=== PATIENT | female | born 1965 | race Caucasian/White ===

== ENCOUNTER 2019-10-22 14:45 | Inpatient (IN) | payer OTHER, MEDICAID ==
[~2019-10-22] VITALS: Ht 157.5 cm; Wt 51.7 kg
[2019-10-22 15:26] VITALS: BP_SYST 98
--- NOTE | 2019-10-22 15:36 | NUR ---
Patient to ER bed 04 to gown for evaluation. Side rails up.
[2019-10-22] MEDS ORDERED: NACL 0.9% 1,000 ML IV ONE (15:44)
[2019-10-22] MEDS ORDERED: NS 1000 ML IV.SOLN IV ONE (15:45)
--- NOTE | 2019-10-22 15:46 | NUR ---
ER at bedside examining patient.
[2019-10-22] MEDS ORDERED: cefTRIAXone 1 GM IVPB PREMIX 50 ML IV ONE (16:00)
[2019-10-22] MEDS ORDERED: ACETAMINOPHEN 500 MG TABLET PO ONE (16:00)
--- NOTE | 2019-10-22 16:00 | NUR ---
Report received from BRANDEN Bird, BIB ambulance from [facility]. Patient had fever of 101.6 at 1130 today. patient given tyelnol at [facility]. pt history of pneumonia, bronchitis and UTI. Patient afebrile on arrival. No s/s of acute distress noted. Will continue to monitor.
--- NOTE | 2019-10-22 16:30 | NUR ---
Patient transported to radiology via gurny, accompanied by rv technician.
[2019-10-22 16:34] LABS: HEMATOCRIT 35.5 % (36-48); HEMOGLOBIN 11.7 g/dL (12.0-16.0); MEAN CORPUSCULAR HEMOGLOBIN 29 pg (27-31); MEAN CORPUSCULAR HGB CONC 33 % (32-36); MEAN CORPUSCULAR VOLUME 87 fL (79.0-98.0); PLATELET COUNT (AUTO) 306 K/uL (130-430); RED BLOOD CELL COUNT(AUTO) 4.07 MIL/uL (4.2-6.2); RED CELL DISTRIBUTION WIDTH 15.5 % (9.0-15.0); WHITE BLOOD COUNT (AUTO) 10.4 K/uL (4.8-10.8)
[2019-10-22] MEDS ORDERED: AZITHROMYCIN 500 MG in NS 250 ML IV ONE (16:45)
--- NOTE | 2019-10-22 16:45 | NUR ---
patient back from radiology. no s/s of acute distress noted.
[2019-10-22 17:00] LABS: INR 1.1 (0.8-1.2); PROTHROMBIN TIME 10.7 SECS (9.5-12.5)
--- NOTE | 2019-10-22 17:00 | NUR ---
attempted to straight cath for urine sample x2 by two different RN's including smelter charger. attempts unsuccessful. per md, let patient rest and attempt later.
[2019-10-22 17:14] LABS: CALCIUM 9.2 mg/dL (8.4-11.0); CREATININE 0.8 mg/dL (0.55-1.30); POTASSIUM 3.8 mmol/L (3.5-5.1)
[2019-10-22] MEDS ORDERED: LORazepam 2 MG/ML VIAL IVP ONE (17:15)
[2019-10-22 17:19] LABS: ALBUMIN 2.5 g/dL (3.4-4.8); TOTAL BILIRUBIN 0.3 mg/dL (0.0-1.0)
[2019-10-22] MEDS ORDERED: LORazepam 2 MG/ML VIAL ONE (17:22)
[2019-10-22 17:32] LABS: ATYPICAL LYMPHOCYTES % 1 % (0-0); BAND % (MANUAL) 4 % (0-6); LYMPHOCYTES % (MANUAL) 22 % (20-46)
[2019-10-22 17:33] LABS: BASOPHILS % (MANUAL) 0 % (0-2); EOSINOPHILS % (MANUAL) 0 % (0-7); MONOCYTES % (MANUAL) 21 % (0-11)
--- NOTE | 2019-10-22 17:58 | NUR ---
Dr. Arnoldium paged regarding admission.
[2019-10-22] MEDS ORDERED: AZITHROMYCIN 500 MG/VIAL (ZITHROMAX) IV ONE ×2 (18:04→19:27)
--- NOTE | 2019-10-22 18:25 | NUR ---
Attempted to straight cath patient and unsuccessful. Will endorse to tele unit
[2019-10-22] MEDS: NACL 0.9% 1,000 ML IV SCH (18:34)
--- NOTE | 2019-10-22 19:30 | NUR ---
CORNELIA Ulrich started by RN @ 1851, completed @ 1929
--- NOTE | 2019-10-22 19:55 | NUR ---
Gave report to BRANDEN Gonzalez. Patient's summary report, code status form and belongins all completed and printed. Unable to straight cath pt to obtain urine specimen. Patient in bed, awake and resting. No s/s of acute distress noted. Patient unable to be transferred at this time, waiting for unit to accept patient. endorsed care to BRANDEN Gonzalez.
--- NOTE | 2019-10-22 20:00 | NUR ---
Received sbar report from BRANDEN Burnett. Pt in no signs of acute distress or discomfort noted. Will cont to monitor pt.
--- NOTE | 2019-10-22 21:00 | NUR ---
Attempted in and out cath at bedside. Attempt unseuccessful. Will make MD aware.
[2019-10-22] MEDS ORDERED: ACET-2165 PO ×2 (21:52→21:53)
[2019-10-22] MEDS ORDERED: ALBU2.5V7 INH (21:53)
[2019-10-22] MEDS ORDERED: ASCO500T20 PO (21:54)
[2019-10-22] MEDS ORDERED: BISA10SU61 RC (21:55)
[2019-10-22] MEDS ORDERED: VITD2000 PO (21:56)
[2019-10-22] MEDS ORDERED: DOCU-144 PO (21:57)
[2019-10-22] MEDS ORDERED: SACC250C3 PO (21:57)
[2019-10-22] MEDS ORDERED: HYDR200T80 PO (21:58)
[2019-10-22] MEDS ORDERED: MOM PO (21:59)
[2019-10-22] MEDS ORDERED: MULT1CAP34 PO (22:00)
[2019-10-22] MEDS ORDERED: OMEP20CA11 PO (22:00)
--- NOTE | 2019-10-22 22:00 | NUR ---
Pt in bed with eyes open resting comfortably. No signs of acute distress or discomfort noted. Will cont to monitor pt.
[2019-10-22] MEDS ORDERED: CALC-827 PO (22:01)
[2019-10-22] MEDS ORDERED: OXYB10TA2 PO (22:02)
[2019-10-22] MEDS ORDERED: PRED5TAB PO (22:03)
[2019-10-22] MEDS ORDERED: AMIN30LI2 PO (22:04)
[2019-10-22] MEDS ORDERED: METO-290 PO (22:04)
[2019-10-22] MEDS ORDERED: ZINC56.7 TP (22:14)
[2019-10-22 23:10] VITALS: BP_SYST 135
--- NOTE | 2019-10-22 23:10 | NUR ---
ADMISSION NOTE Received patient from ER via gurney. Patient admitted with diagnosis of PNA. Patient is awake, alert, oriented X 0. Patient oriented to hospital room, call light, toileting, pain management and safety-teach back done. Patient informed that PASTORA will be HER nurse and that their room number is 122B. Personal belongings checked and Belongings List documented. Call light within reach.
--- NOTE | 2019-10-22 23:10 | NUR ---
Transfer to telemtry unit via ACLS protocol. Licensed nurse present. IV present no signs or symptoms of infiltration.
[2019-10-22] MEDS ORDERED: BISACODYL 10 MG/SUPPOSITORY RC PRN (23:30)
[2019-10-22] MEDS ORDERED: MILK OF MAGNESIA 30 ML UDC PO PRN (23:30)
[2019-10-22] MEDS: IPRATROPIUM/ALBUTEROL SULFATE 3 ML AMPUL.NEB (DUONEB) INH SCH (23:31)
[2019-10-22 23:49] VITALS: BP_SYST 135
[2019-10-22 23:54] VITALS: BP_SYST 135
[2019-10-23] VITALS (7 sets, daily range): BP systolic 91–116
--- NOTE | 2019-10-23 00:23 | NUR ---
Uro Consultation Paged Reason for consultation: UTI Was consult called: Yes Person who was notified: Parul Consulting Physician: Dr Moon Pneumatic Riveter Pneumatic Riveter Specialty: Urology Ordered By: Dr Ken
--- NOTE | 2019-10-23 00:23 | NUR ---
Pulmo Consultation Paged Reason for consultation: Bilateral PNA Was consult called: Yes Person who was notified: Parul Consulting Physician: Dr Lorenzo Live Source Operator Live Source Operator Specialty: Pulmo Ordered By: Dr Ken
--- NOTE | 2019-10-23 00:28 | NUR ---
ID Consultation Paged Reason for consultation: PNA Was consult called: Yes Person who was notified: Parul Consulting Physician: Dr Gallegos Office Communication Professor Office Communication Professor Specialty: Infectious Disease Ordered By: Dr Ken
--- NOTE | 2019-10-23 01:00 | NUR ---
UNABLE TO INSERT DE LA CRUZ, DR. MOON UNABLE TO ACCEPT PATIENT Patient is resting in bed, awake, breathing evenly and nonlabored on 2L of oxygen via NC. Educated patient on need for de la cruz catheter, patient unable to state understanding due to cognitive limitations. Attempt to insert de la cruz catheter to patient unsuccessful. Spoke with Dr. Moon, he is unable to accept patient for urology consult, he referred Dr. Jonathan Tran instead. No s/s of distress at this time, fall/safety/aspiration precautions, will continue to monitor.
--- NOTE | 2019-10-23 03:00 | NUR ---
ROUNDS Patient is resting in bed, eyes closed, breathing evenly and nonlabored on 2L of oxygen via NC. No s/s of distress at this time, fall/safety/aspiration precautions, will continue to monitor.
[2019-10-23] MEDS: IPRATROPIUM/ALBUTEROL SULFATE 3 ML AMPUL.NEB (DUONEB) INH SCH ×6 (04:09→22:40)
--- NOTE | 2019-10-23 04:30 | NUR ---
IVF STARTED, NEW IV STARTED Patient is resting in bed, eyes closed, breathing evenly and nonlabored on 2L of oxygen via NC. New IV started on the right hand 22g, IVF started and running, patient is tolerating it well. Patient has and IV on the left wrist 22g SL. No s/s of distress at this time, fall/safety/aspiration precautions, will continue to monitor.
[2019-10-23] MEDS: NACL 0.9% 1,000 ML IV SCH ×2 (04:31→15:41)
[2019-10-23 06:40] LABS: BASOPHILS # (AUTO) 0.2 K/uL (0.0-0.2); BASOPHILS % (AUTO) 1.6 % (0.0-2.0); EOSINOPHILS # (AUTO) 0.1 K/uL (0.0-0.4); EOSINOPHILS % (AUTO) 0.6 % (0.0-4.0); HEMATOCRIT 34.2 % (36-48); HEMOGLOBIN 11.1 g/dL (12.0-16.0); LYMPHOCYTES # (AUTO) 1.8 K/uL (1.0-5.5); LYMPHOCYTES % (AUTO) 16.9 % (20.5-51.5); MEAN CORPUSCULAR HEMOGLOBIN 29 pg (27-31); MEAN CORPUSCULAR HGB CONC 32 % (32-36); MEAN CORPUSCULAR VOLUME 89 fL (79.0-98.0); MONOCYTES # (AUTO) 2.1 K/uL (0.0-1.0); MONOCYTES % (AUTO) 19.4 % (1.7-9.3); NEUTROPHILS # (AUTO) 6.6 K/uL (1.8-7.7); NEUTROPHILS % (AUTO) 61.5 % (40.0-70.0); PLATELET COUNT (AUTO) 274 K/uL (130-430); RED BLOOD CELL COUNT(AUTO) 3.84 MIL/uL (4.2-6.2); RED CELL DISTRIBUTION WIDTH 15.4 % (9.0-15.0); WHITE BLOOD COUNT (AUTO) 10.8 K/uL (4.8-10.8)
--- NOTE | 2019-10-23 06:55 | NUR ---
CLOSING NOTES Patient is resting in bed, eyes closed, breathing evenly and nonlabored on 2L of oxygen via NC. Needs met throughout the shift. No s/s of distress at this time, fall/safety/aspiration precautions, will endorse care to morning shift RN.
[2019-10-23 07:10] LABS: ALBUMIN 2.1 g/dL (3.4-4.8); CALCIUM 8.3 mg/dL (8.4-11.0); CREATININE 0.53 mg/dL (0.55-1.30); POTASSIUM 3.8 mmol/L (3.5-5.1); TOTAL BILIRUBIN 0.2 mg/dL (0.0-1.0)
[2019-10-23] MEDS ORDERED: NON-FORMULARY MEDICATION (Amino Acids/Protein Hydrolys (Pro-Stat Liquid) 30 ML) PO SCH (09:00)
[2019-10-23] MEDS: HYDROXYCHLOROQUINE SULFATE 200 MG TABLET PO SCH (09:00)
--- NOTE | 2019-10-23 09:47 | NUR ---
Nutrition Update Betito Scale 13 noted. Pt admitted for PNA Diet: Regular BMI: 20.9 kg/m2 RD to follow per nutrition care standards.
--- NOTE | 2019-10-23 10:04 | NUR ---
CONSULTATION PAGED/CALLED Reason for Consultation: [] HYDRONEPHROSIS Person Who was Notified: [] MALOU Consulting Physician: [] CORINNA ALVAREZ Logging Crew Foreman Specialty: [] UROLOGY Ordering Physician: [] DR NAVARRETE
[2019-10-23] MEDS: OXYBUTYNIN CHLORIDE 5 MG TABLET PO SCH (11:10)
[2019-10-23] MEDS: PREDNISONE 5 MG TABLET PO SCH (11:11)
[2019-10-23] MEDS: AZITHROMYCIN 250 MG TABLET PO SCH (11:11)
[2019-10-23] MEDS: ASCORBIC ACID 500 MG TABLET PO SCH (11:11)
[2019-10-23] MEDS: MULTIVITAMINS TAB 1 TABLET PO SCH (11:11)
[2019-10-23] MEDS: CHOLECALCIFEROL (VITAMIN D3) 2,000 UNIT TABLET PO SCH (11:11)
[2019-10-23] MEDS: CALCIUM CARBONATE/VITAMIN D3 1 TAB TABLET PO SCH ×2 (11:11→21:58)
[2019-10-23] MEDS: LACTOBACILLUS RHAMNOSUS GG 1 CAP CAPSULE PO SCH ×2 (11:11→21:58)
[2019-10-23] MEDS: METOCLOPRAMIDE HCL 10 MG TABLET PO SCH ×3 (11:11→21:58)
[2019-10-23] MEDS: ACETAMINOPHEN 325 MG TABLET PO PRN ×2 (15:44→22:55)
[2019-10-23] MEDS ORDERED: cefTRIAXone 1 GM in D5W 50 ML IV SCH (18:00)
--- NOTE | 2019-10-23 18:33 | NUR ---
CLOSING: PT HAS BEEN STABLE, EXCEPT FOR FEVER OF 100.8 . PT ABLE TO EAT BETTER WITH PUREED DIET. WILL ENDORSE TO NIGHT NURSE. MEDS GIVEN CRUSHED WITH APPLESAUCE. Addendum: 10/23/19 at 1835 by Oscar Zuniga RN PT GIVEN IV ANTIBIOTICS ORDERED.
--- NOTE | 2019-10-23 18:50 | NUR ---
UNABLE TO INSERT DE LA CRUZ CATH USING 14FR CATH. WILL ENDORSE TO NIGHT NURSE. DR GARCIA (URO) WILL SEE PT IN AM.
--- NOTE | 2019-10-23 19:30 | NUR ---
Opening notes Received report. Patient is resting in bed. No signs of distress noted 2 L NC. Breathing even and unlabored. IV patent and intact, no signs of infiltration noted. Dr. Tran called stating he will come in tonight to see patient. no other needs. Call light with the patient. Safety precautions in place.
--- NOTE | 2019-10-23 21:30 | NUR ---
Medications given, crushed with applesauce. Educated the action and side effects of medications. Patient tolerated well and ate 1 applesauce. Hygiene care provided for patient. Patient screams when turned. Call light with the patient. Safety precautions in place.
[2019-10-23] MEDS ORDERED: NACL 0.9% 1,000 ML IV ONE (23:30)
--- NOTE | 2019-10-23 23:30 | NUR ---
Fever/Dr. Tran at bedside Patient had temperature of 100.7. PRN Tylenol given. Educated the action and side effects of medications. Patient half cup of chocolate pudding and tolerated well. Dr. Tran at bedside and inserted 16 F romero catheter with 200 ml of immediate urine return. Urine sample sent to lab. Informed MD about patient's low BP. New orders received from .
[2019-10-23 23:44] LABS: BILIRUBIN,URINE NEGATIVE (NEGATIVE); BLOOD, URINE 1+ (NEGATIVE); CLARITY/URINE TURBID (CLEAR); COLOR,URINE YELLOW (YELLOW); GLUCOSE,URINE NEGATIVE (NEGATIVE); KETONES,URINE NEGATIVE (NEGATIVE); LEUKOCYTE ESTERASE ,URINE 3+ (NEGATIVE); NITRITE, URINE NEGATIVE (NEGATIVE); PROTEIN URINE NEGATIVE (NEGATIVE); UROBILINOGEN,URINE 0.2 (0.2-1.0)
[2019-10-24] LABS: BACTERIA,URINE MANY /HPF (None Seen); WBC,URINE >100 /HPF (0-3)
[2019-10-24] MEDS: NACL 0.9% 1,000 ML IV SCH ×3 (00:52→21:48)
--- NOTE | 2019-10-24 02:00 | NUR ---
Resting Patient resting in bed. No signs of distress noted. Breathing even and unlabored. IVF infusing well. Temp at this time 99.0. Influenza screen collected and sent to lab. Call light with the patient. Safety precautions in place.
--- NOTE | 2019-10-24 04:00 | NUR ---
Hygiene care provided Patient tolerated well. No signs of distress noted. Breathing even and unlabored. IVF infusing well. Call light with the patient. Safety precautions in place.
[2019-10-24] MEDS: IPRATROPIUM/ALBUTEROL SULFATE 3 ML AMPUL.NEB (DUONEB) INH SCH ×6 (04:05→23:14)
[2019-10-24 06:31] LABS: CALCIUM 8.5 mg/dL (8.4-11.0); CREATININE 0.71 mg/dL (0.55-1.30); POTASSIUM 3.4 mmol/L (3.5-5.1)
--- NOTE | 2019-10-24 06:31 | NUR ---
Closing notes Patient sleeping at this time. No signs of distress noted. Breathing even and unlabored on 2 L NC. IV patent and intact, infusing fluids. Groves catheter in place, draining yellow urine. All needs met throughout the shift. Call light with the patient. Safety precautions in place. Will endorse care to day shift RN.
[2019-10-24 06:32] LABS: HEMATOCRIT 31.1 % (36-48); HEMOGLOBIN 10.2 g/dL (12.0-16.0); MEAN CORPUSCULAR HEMOGLOBIN 29 pg (27-31); MEAN CORPUSCULAR HGB CONC 33 % (32-36); MEAN CORPUSCULAR VOLUME 89 fL (79.0-98.0); PLATELET COUNT (AUTO) 261 K/uL (130-430); WHITE BLOOD COUNT (AUTO) 7.8 K/uL (4.8-10.8)
[2019-10-24 07:45] LABS: BASOPHILS % (MANUAL) 0 % (0-2); EOSINOPHILS % (MANUAL) 0 % (0-7); LYMPHOCYTES % (MANUAL) 45 % (20-46); MONOCYTES % (MANUAL) 13 % (0-11)
[2019-10-24 07:57] VITALS: BP_SYST 107
--- NOTE | 2019-10-24 08:00 | NUR ---
Note Pt sitting up in bed being assisted in eating her breakfast. IV in right hand intact and patent infusing IVF's well. Left wrist IV intact and patent. Tele unit attached and intact at this time. No needs noted. Call light within reach.
[2019-10-24] MEDS: HYDROXYCHLOROQUINE SULFATE 200 MG TABLET PO SCH (08:45)
[2019-10-24] MEDS: AZITHROMYCIN 250 MG TABLET PO SCH (08:45)
[2019-10-24] MEDS: OXYBUTYNIN CHLORIDE 5 MG TABLET PO SCH (08:46)
[2019-10-24] MEDS: LACTOBACILLUS RHAMNOSUS GG 1 CAP CAPSULE PO SCH ×2 (08:46→21:47)
[2019-10-24] MEDS: MULTIVITAMINS TAB 1 TABLET PO SCH (08:46)
[2019-10-24] MEDS: CALCIUM CARBONATE/VITAMIN D3 1 TAB TABLET PO SCH ×2 (08:46→21:47)
[2019-10-24] MEDS: CHOLECALCIFEROL (VITAMIN D3) 2,000 UNIT TABLET PO SCH (08:46)
[2019-10-24] MEDS: PREDNISONE 5 MG TABLET PO SCH (08:46)
[2019-10-24] MEDS: ASCORBIC ACID 500 MG TABLET PO SCH (08:46)
[2019-10-24] MEDS: METOCLOPRAMIDE HCL 10 MG TABLET PO SCH ×3 (08:46→21:47)
--- NOTE | 2019-10-24 10:00 | NUR ---
Note Dr Ken was paged at 0920am to notify MD that pt testd positive for MRSA in nares. Waiting for call back.
[2019-10-24 12:00] VITALS: BP_SYST 114
[2019-10-24] MEDS ORDERED: POTASSIUM CHLORIDE 20 MEQ TAB.PRT.SR PO ONE (12:15)
--- NOTE | 2019-10-24 13:13 | NUR ---
Dietitian Recommendations *Continue: pureed diet per MD orders. ONS Ensure Enlive comes standard w/ diet and provides additional 1050 kcal, 60 gm protein daily. Please see Nutritional Assessment for details. CARLITO, RD
--- NOTE | 2019-10-24 14:00 | NUR ---
Note Pt resting in bed, no needs noted at this time. Call light within reach. IVF's infusing well at this time through right hand IV site. Call light within reach all shift.
[2019-10-24 16:30] VITALS: BP_SYST 125
--- NOTE | 2019-10-24 16:40 | NUR ---
Note Pt resting in bed. No needs noted at this time. Call light within reach.
--- NOTE | 2019-10-24 19:00 | NUR ---
Note Pt resting in bed with tele unit attached and intact all shift. Pt was checked on q1' and PRN all shift for needs and care. IV in right hand intact and patent infusing IVF's well. Groves catheter intact and draining. No needs noted. Report given to NOC RN for continuation of care. Call light within reach. Pt was maintained with isolation precautions all shift since 0915am.
--- NOTE | 2019-10-24 19:25 | NUR ---
Opening note Received patient resting in bed awake, AO x1 to name, she is nonverbal. Respirations are 22 on 2L NC. IVF is infusing via IV to right hand, IV to left wrist is saline locked. Bed rails up 3x, bed is locked in lowest position, and bed alarm on. She has a romero catheter and drainage bag is free of dependent loops and draining to gravity.
[2019-10-24 20:00] VITALS: BP_SYST 126
[2019-10-24] MEDS: CEFEPIME 1 GM in D5W 50 ML IV SCH (21:46)
--- NOTE | 2019-10-24 21:47 | NUR ---
Medications Patient was given due medications crushed and mixed in applesauce, patient was cooperative and willing to take meds. Maxipime, antibiotic administered and infusing well. Patient repositioned for comfort.
--- NOTE | 2019-10-25 00:05 | NUR ---
Dr. Kavya Hoff at bedside making rounds
[2019-10-25 02:14] VITALS: BP_SYST 130
[2019-10-25] MEDS: IPRATROPIUM/ALBUTEROL SULFATE 3 ML AMPUL.NEB (DUONEB) INH SCH ×5 (04:07→23:35)
[2019-10-25] MEDS: ACETAMINOPHEN 325 MG TABLET PO PRN (04:41)
--- NOTE | 2019-10-25 04:41 | NUR ---
Elevated HR, temp 99.3 Patient's HR increased to 130's on telemonitor. She has an oral temp of 99.3 and she also received a breathing treatment at 0407. She was administered Tylenol and cooling measures provided. Will continue to monitor heart rate and temp.
--- NOTE | 2019-10-25 06:30 | NUR ---
closing note Patient is calm, HR decreased to 113, afebrile. Repositioned for comfort.. IVF infusing well. Safety precautions in place, Needs met throughout shift, will endorse care.
[2019-10-25] MEDS: NACL 0.9% 1,000 ML IV SCH ×2 (06:32→09:26)
[2019-10-25 07:28] LABS: CALCIUM 8.7 mg/dL (8.4-11.0); CREATININE 0.64 mg/dL (0.55-1.30); POTASSIUM 3.5 mmol/L (3.5-5.1); TOTAL BILIRUBIN 0.2 mg/dL (0.0-1.0)
[2019-10-25 08:00] VITALS: BP_SYST 106
--- NOTE | 2019-10-25 08:00 | NUR ---
Initial notes- In bed, awake, non verbal. feeder, afebrile at this time. IVF infusing well. Groves cath draining well with clear yellow urine. Maintain on contact isolation for mrsa nares. bed alarm on. will continue to monitor.
[2019-10-25 08:50] LABS: BASOPHILS % (AUTO) 0.1 % (0.0-2.0); EOSINOPHILS # (AUTO) 0.1 K/uL (0.0-0.4); EOSINOPHILS % (AUTO) 1.1 % (0.0-4.0); HEMATOCRIT 30.1 % (36-48); HEMOGLOBIN 9.8 g/dL (12.0-16.0); LYMPHOCYTES # (AUTO) 2.1 K/uL (1.0-5.5); LYMPHOCYTES % (AUTO) 23.5 % (20.5-51.5); MEAN CORPUSCULAR HEMOGLOBIN 29 pg (27-31); MEAN CORPUSCULAR HGB CONC 33 % (32-36); MEAN CORPUSCULAR VOLUME 88 fL (79.0-98.0); MONOCYTES % (AUTO) 11.6 % (1.7-9.3); NEUTROPHILS # (AUTO) 5.7 K/uL (1.8-7.7); NEUTROPHILS % (AUTO) 63.7 % (40.0-70.0); PLATELET COUNT (AUTO) 281 K/uL (130-430); RED BLOOD CELL COUNT(AUTO) 3.42 MIL/uL (4.2-6.2); RED CELL DISTRIBUTION WIDTH 15.6 % (9.0-15.0)
[2019-10-25] MEDS: ZINC OXIDE TP SCH (09:00)
[2019-10-25] MEDS: OXYBUTYNIN CHLORIDE 5 MG TABLET PO SCH (09:26)
[2019-10-25] MEDS: PREDNISONE 5 MG TABLET PO SCH (09:26)
[2019-10-25] MEDS: CEFEPIME 1 GM in D5W 50 ML IV SCH ×2 (09:26→20:42)
[2019-10-25] MEDS: MULTIVITAMINS TAB 1 TABLET PO SCH (09:26)
[2019-10-25] MEDS: CHOLECALCIFEROL (VITAMIN D3) 2,000 UNIT TABLET PO SCH (09:26)
[2019-10-25] MEDS: CALCIUM CARBONATE/VITAMIN D3 1 TAB TABLET PO SCH ×2 (09:27→20:43)
[2019-10-25] MEDS: METOCLOPRAMIDE HCL 10 MG TABLET PO SCH ×3 (09:27→20:43)
[2019-10-25] MEDS: ASCORBIC ACID 500 MG TABLET PO SCH (09:27)
[2019-10-25] MEDS: LACTOBACILLUS RHAMNOSUS GG 1 CAP CAPSULE PO SCH ×2 (09:27→20:43)
--- NOTE | 2019-10-25 10:30 | NUR ---
MD ROUNDS Seen by Dr. Hoff. Pt in bed, no distress, repositioned.
[2019-10-25] MEDS ORDERED: POTASSIUM CHLORIDE 20 MEQ TAB.PRT.SR PO ONE (11:45)
[2019-10-25 12:00] VITALS: BP_SYST 94
[2019-10-25] MEDS: HYDROXYCHLOROQUINE SULFATE 200 MG TABLET PO SCH (12:27)
[2019-10-25] MEDS: 0.45% NACL 1,000 ML IV SCH (12:28)
--- NOTE | 2019-10-25 12:44 | NUR ---
Notes- In bed, awake.No acute distress noted. Repositioned. IVF infusing well.
[2019-10-25 15:20] VITALS: BP_SYST 103
--- NOTE | 2019-10-25 16:09 | NUR ---
Notes- In bed, awake. no distress noted, pt nods when ask question. denies any pain at this time. IVF infusing well.Bed alarm on. Will continue to monitor.
[2019-10-25 16:10] VITALS: BP_SYST 103
[2019-10-25] MEDS: MUPIROCIN 2% TOPICAL OINTMENT 22 GM NS SCH (20:42)
[2019-10-25 20:45] VITALS: BP_SYST 99
--- NOTE | 2019-10-25 20:45 | NUR ---
Med pass Pt awake, no s/s distress noted. HOB elevated. Meds crushed and passed as scheduled. Oral care provided and suctioned prn. Pt tolerated well. To monitor.
[2019-10-26 01:53] VITALS: BP_SYST 101
[2019-10-26] MEDS: IPRATROPIUM/ALBUTEROL SULFATE 3 ML AMPUL.NEB (DUONEB) INH SCH ×5 (03:00→20:01)
--- NOTE | 2019-10-26 04:10 | NUR ---
Rounds Pt asleep, respiraitions even and unlabored. O2 2L via NC. Call light within reach. Pt repositioned. To monitor.
[2019-10-26] MEDS: 0.45% NACL 1,000 ML IV SCH ×2 (06:16→22:04)
[2019-10-26] MEDS: HYDROXYCHLOROQUINE SULFATE 200 MG TABLET PO SCH (09:00)
[2019-10-26] MEDS: LACTOBACILLUS RHAMNOSUS GG 1 CAP CAPSULE PO SCH ×2 (09:08→22:01)
[2019-10-26] MEDS: OXYBUTYNIN CHLORIDE 5 MG TABLET PO SCH (09:08)
[2019-10-26] MEDS: CALCIUM CARBONATE/VITAMIN D3 1 TAB TABLET PO SCH ×2 (09:08→22:01)
[2019-10-26] MEDS: MULTIVITAMINS TAB 1 TABLET PO SCH (09:08)
[2019-10-26] MEDS: ASCORBIC ACID 500 MG TABLET PO SCH (09:08)
[2019-10-26] MEDS: CEFEPIME 1 GM in D5W 50 ML IV SCH ×2 (09:08→22:01)
[2019-10-26] MEDS: METOCLOPRAMIDE HCL 10 MG TABLET PO SCH ×3 (09:08→22:01)
[2019-10-26] MEDS: CHOLECALCIFEROL (VITAMIN D3) 2,000 UNIT TABLET PO SCH (09:08)
[2019-10-26] MEDS: PREDNISONE 5 MG TABLET PO SCH (09:09)
[2019-10-26] MEDS: ZINC OXIDE TP SCH (09:10)
[2019-10-26] MEDS: MUPIROCIN 2% TOPICAL OINTMENT 22 GM NS SCH ×2 (09:10→22:01)
[2019-10-26 12:11] VITALS: BP_SYST 101
[2019-10-26 17:13] VITALS: BP_SYST 89
[2019-10-26 18:56] VITALS: BP_SYST 101
--- NOTE | 2019-10-26 19:30 | NUR ---
Opening notes Received report. Patient is resting in bed. No signs of distress noted. Breathing even and unlabored. IV patent and intact, infusing fluids. Groves catheter in place, draining yellow urine. No needs at this time. Call light with the patient. Safety precautions in place.
[2019-10-26 20:00] VITALS: BP_SYST 116
--- NOTE | 2019-10-26 22:00 | NUR ---
Medications given, crushed with applesauce. Educated the action and side effects of medications. Patient tolerated well. Patient IV infiltrated. New IV inserted into left wrist 22 gauge. Resumed fluids. Call light with the patient. Safety precautions in place.
--- NOTE | 2019-10-27 | NUR ---
Resting Patient is resting in bed, no signs of distress noted. Breathing even and unlabored. IVF infusing well. No needs. Call light with the patient. Safety precautions in place.
[2019-10-27] MEDS: IPRATROPIUM/ALBUTEROL SULFATE 3 ML AMPUL.NEB (DUONEB) INH SCH ×5 (00:35→16:35)
--- NOTE | 2019-10-27 02:00 | NUR ---
Sleeping No signs of distress noted. Breathing even and unlabored 2 L NC. IVF infusing well. Call light with the patient. Safety precautions in place.
[2019-10-27 02:14] VITALS: BP_SYST 110
--- NOTE | 2019-10-27 04:25 | NUR ---
Hygiene care provided. Patient tolerated well. No other needs. No signs of distress noted. Breathing even and unlabored on 2 L NC. Call light with the patient. Safety precautions in place.
--- NOTE | 2019-10-27 06:47 | NUR ---
Closing notes Patient is resting in bed. No signs of distress noted. Breathing even and unlabored. IV patent and intact, infusing fluids. Groves catheter in place, draining urine. All needs met throughout the shift. Call light with the patient. Safety precautions in place. Will endorse care to day shift RN.
[2019-10-27] MEDS: CEFEPIME 1 GM in D5W 50 ML IV SCH (09:30)
[2019-10-27] MEDS: MULTIVITAMINS TAB 1 TABLET PO SCH (10:32)
[2019-10-27] MEDS: CHOLECALCIFEROL (VITAMIN D3) 2,000 UNIT TABLET PO SCH (10:32)
[2019-10-27] MEDS: PREDNISONE 5 MG TABLET PO SCH (10:32)
[2019-10-27] MEDS: CALCIUM CARBONATE/VITAMIN D3 1 TAB TABLET PO SCH (10:32)
[2019-10-27] MEDS: HYDROXYCHLOROQUINE SULFATE 200 MG TABLET PO SCH (10:32)
[2019-10-27] MEDS: METOCLOPRAMIDE HCL 10 MG TABLET PO SCH ×2 (10:32→16:16)
[2019-10-27] MEDS: OXYBUTYNIN CHLORIDE 5 MG TABLET PO SCH (10:32)
[2019-10-27] MEDS: ASCORBIC ACID 500 MG TABLET PO SCH (10:32)
[2019-10-27] MEDS: LACTOBACILLUS RHAMNOSUS GG 1 CAP CAPSULE PO SCH (10:33)
[2019-10-27] MEDS: MUPIROCIN 2% TOPICAL OINTMENT 22 GM NS SCH (10:33)
[2019-10-27 12:16] VITALS: BP_SYST 95
--- NOTE | 2019-10-27 12:27 | NUR ---
DC PLANNING Called & spoke w Dr Hoff, gave phone order to dc back to SNF. Called pt emergency contact Uncle Jay Yimi, ph [phone], call not going through. Called & spoke w Narda @ [facility], ph [phone], Bill is emergency contact no other#. Merly Sarmiento is secondary contact. Merly Sarmiento is from [facility], ph [phone], called & left Merly simon that pt has order to dc back to [facility] today.
--- NOTE | 2019-10-27 15:10 | NUR ---
Discharge Planning: DCP faxed pt referral to [facility] (f [phone] p [phone]) DCP to follow up Addendum: 10/27/19 at 1600 by Lazara BARRERA Patient discharging to [facility] (f [phone] p [phone]) Rm 28B, transportation arrange with [facility] ([phone]) 6:00pm P/U pateint packet taken to nurse station nurse made aware.
[2019-10-27 16:15] VITALS: BP_SYST 109
[2019-10-27 17:15] VITALS: BP_SYST 109
[2019-10-27 17:28] VITALS: BP_SYST 109
--- NOTE | 2019-10-27 18:09 | NUR ---
rounds report given to will farnsworth at [facility].
== END 2019-10-27 18:55 | DRG 871 ==
LOC: SED 14:45 → STU 18:34 → SMU 10-25 13:15
PROVIDERS: ADMIT Internal Medicine; ATTEND Internal Medicine
DX: A41.9 Sepsis, unspecified organism (principal); J15.6 Pneumonia due to other Gram-negative bacteria; G93.40 Encephalopathy, unspecified; N13.6 Pyonephrosis; Z16.30 Resistance to unspecified antimicrobial drugs; G80.9 Cerebral palsy, unspecified; M32.9 Systemic lupus erythematosus, unspecified; L89.312 Pressure ulcer of right buttock, stage 2; M06.9 Rheumatoid arthritis, unspecified; N28.82 Megaloureter; K21.9 Gastro-esophageal reflux disease without esophagitis; Z79.899 Other long term (current) drug therapy; Z88.8 Allergy status to other drugs, medicaments and biological substances; Z87.440 Personal history of urinary (tract) infections; Z90.710 Acquired absence of both cervix and uterus; Z88.0 Allergy status to penicillin; Z74.01 Bed confinement status
CPT/HCPCS: 36415; 70450-TC; 71045; 80048; 80053; 81000-TC; 82150-TC; 83605; 83690-TC; 85007; 85025; 85027; 85610-TC; 85730-TC; 86710; 87040-TC; 87081; 87086; 94640; 94760; 96361; 96365; 96375; 99285; G0378; J0456; J0692; J0696; J2060; J7030; J7060; J7512; J7620; J8597; Q0144